=== PATIENT | female | born 1955 | race Caucasian/White ===

== ENCOUNTER 2023-02-20 16:19 | Emergency (ER) | payer BC, MEDICARE ==
[2023-02-20] MEDS ORDERED: Lidocaine 2% with EPINEPHrine 1:200,000 20 ML SDV INJECT ONE (16:37)
[2023-02-20] MEDS ORDERED: Bacitracin Oint 1 GM U/D Packet TOP ONE (16:37)
== END 2023-02-20 17:36 | disposition home or self-care (01) ==
LOC: DL.ED 16:19
DX: S81.011A Laceration without foreign body, right knee, initial encounter (principal); Z88.0 Allergy status to penicillin; W20.8XXA Other cause of strike by thrown, projected or falling object, initial encounter; Y93.01 Activity, walking, marching and hiking
CPT/HCPCS: 12004; 99282; A9270-GY; J3490

== ENCOUNTER 2023-12-25 17:19 | Emergency (ER) | payer BC, MEDICARE ==
[2023-12-25] MEDS: HYDROmorphone 1 MG/ML Syringe IVPUSH ONE (18:41)
[2023-12-25] MEDS: HYDROmorphone 1 MG/ML Syringe ONE (18:41)
[2023-12-25] MEDS: Midazolam 1 MG/ML 2 ML SDV IVPUSH ONE (18:41)
[2023-12-25] MEDS: Sodium Chloride 0.9% 10 ML Syringe FLUSH PRN (18:42)
[2023-12-25] MEDS: Lidocaine 1% 5 ML VIAL INJECT ONE (18:42)
== END 2023-12-25 19:51 | disposition home or self-care (01) ==
LOC: DL.ED 17:19
DX: S62.625A Displaced fracture of middle phalanx of left ring finger, initial encounter for closed fracture (principal); S63.255A Unspecified dislocation of left ring finger, initial encounter; I10 Essential (primary) hypertension; E78.00 Pure hypercholesterolemia, unspecified; Z88.0 Allergy status to penicillin; W19.XXXA Unspecified fall, initial encounter
CPT/HCPCS: 26725; 73140; 96374; 96375; 99283; J1170; J2250; J3490